=== PATIENT | male | born 1955 ===

== ENCOUNTER 2017-10-15 11:38 | Day surgery (SDC) | payer MEDICARE, MEDICAID ==
[2014-07-21 12:59] VITALS: BMI 25.8
[2017-10-15] MEDS ORDERED: Lidocaine 1% 20 MG/2 ML PF AMP ONE (12:20)
[2017-10-15] MEDS ORDERED: Sodium Chloride 0.9% 40 ML IV ONE (12:21)
[2017-10-15] MEDS ORDERED: Midazolam 2 MG/2 ML VIAL ONE (13:17)
[2017-10-15] MEDS ORDERED: Iohexol 240 (50 ml) ONE (13:20)
[2017-10-15] MEDS ORDERED: Lidocaine 1% Inj (20ml) INFIL ONE (13:38)
[2017-10-15] MEDS ORDERED: Sodium Chloride 0.9% 500 ML IV ONE (13:38)
[2017-10-15] MEDS ORDERED: Iohexol 300 100 ML IJ ONE (13:39)
[2017-10-15 14:48] VITALS: BP 150/84; PULSE 76; RESP 19; TEMP 97.9; O2SAT 100
--- NOTE | 2017-10-16 05:53 | OP ---
PROCEDURE DATE: 10/15/2017 PAIN PROCEDURE NOTE SURGEON: Ritika Simmons MD OPERATIVE PROCEDURE: Epidural steroid injection, interlaminar approach with fluoroscopic guidance. INJECTATE: A total of 5.0 cc consisting of 2.5 cc of Kenalog (40 mg/cc)/Celestone (6 mg/cc) with the remainder of saline. FINDINGS: Flow of contrast was excellent along and into the epidural space. PROCEDURE: The patient was prepped and draped in a sterile fashion in the prone position after informed consent was signed and all patient questions were answered including the risks, benefits, alternative treatment options, and prognosis. The risks include but are not limited to infection, allergic reaction, nerve damage, stroke, paralysis, epidural hematoma, syncope, headache, respiratory or cardiac arrest, spinal cord injury, and scar formation. Using a paramedian approach from the side mentioned above, the region overlying the inferior lamina was localized under fluoroscopic visualization and the soft tissues overlying this structure were infiltrated with 4 cc of 1% lidocaine without epinephrine. A #17 gauge Tuohy needle was inserted into the epidural space using a paramedian approach. The epidural space was localized using loss of resistance after negative aspirate for air, blood, and CSF. A 2 cc volume of Omnipaque-300 was injected into the epidural space and the flow of contrast was observed. Radiographs were obtained for documentation purposes. The injectate was administered into the level noted above. The patient tolerated the procedure well and was discharged after an appropriate period of observation. If there are any complications, the patient was instructed to call us. The patient is to follow up with the requesting physician in one to two weeks. Ariz MD [place]
== END 2017-10-15 14:50 | disposition home or self-care (01) ==
LOC: C.SDS 11:38
PROVIDERS: ATTEND Neuromusculoskeletal Medicine, Sports Medicine
DX: M54.12 Radiculopathy, cervical region (principal)
CPT/HCPCS: 62321; 82948; J1100; J2250; J3010; Q9967

== ENCOUNTER 2018-08-12 10:56 | Day surgery (SDC) | payer MEDICARE, MEDICAID ==
[~2018-08-12 10:56] MED LIST: Bupivacaine HCl 0.5% PF (10 ml) Inj ONE; Lidocaine Hydrochloride 20 ML INJ ONE; Sodium Chloride 0.9% 20 ML IV ONE
[2018-08-12 11:20] VITALS: BMI 24.7
[2018-08-12] MEDS ORDERED: Dexamethasone 4 mg/1 ml ONE (13:28)
[2018-08-12] MEDS ORDERED: Propofol 10 mg/ml Inj (20 ML) ONE (13:34)
--- NOTE | 2018-08-12 14:58 | RAD ---
Date of service: 08/12/2018 PROCEDURE: Intraoperative Fluoroscopy. HISTORY: LUMBAR DISC HERNIATION FINDINGS: Fluoroscopic assistance was provided for lumbar facet injections. Please refer to the operative report from BENEDICTO Stover, , MD DANAE.
[2018-08-12 15:36] VITALS: RESP 18; TEMP 97.8
[2018-08-12 15:54] VITALS: BP 129/79; PULSE 66; O2SAT 98
--- NOTE | 2018-08-14 06:26 | OP ---
PROCEDURE DATE: 08/12/2018 PAIN PROCEDURE NOTE SURGEON: Ritika Simmosn MD OPERATIVE PROCEDURE: Lumbosacral epidural steroid injection, transforaminal approach with fluoroscopic guidance. INJECTATE: A total of 5 mL, consisting of 2.5 mL of Kenalog (40 mg/mL), with the remainder of saline. APPROACH: Transforaminal approach. IMPROVEMENT AFTER TODAY'S PROCEDURE: . FINDINGS: Flow of contrast was excellent along the right L5 and S1 nerve roots and into the epidural space. PROCEDURE: The patient was prepped and draped in a sterile fashion in the prone position after informed consent was signed and all the patient's questions were answered including the risks, benefits, alternative treatment options, and prognosis. The risks include but are not limited to infection, allergic reaction, increased pain, lack of therapeutic benefit, steroid reaction, nerve damage, paralysis, stroke, epidural hematoma, syncope, headache, respiratory or cardiac arrest, and scar formation. The C-arm was positioned so that an oblique view of the foramen as noted above was visualized. The soft tissues overlying this structure were infiltrated with 2-3 mL of 1% lidocaine without epinephrine. A 22-gauge spinal needle was inserted toward the target using a "trajectory" view along the fluoroscope beam. Under AP and lateral visualization, the needle was advanced so it did not puncture dura. Biplanar projections were used to confirm position. Aspiration was confirmed to be negative for CSF and/or blood. A 1 to 2 mL volume of Omnipaque-300 was injected and flow of contrast was noted at each level. Radiographs were obtained for documentation purposes. After attaining flow of contrast documented above, a 1 mL test dose of 1% lidocaine was injected into each respective transforaminal space. The patient was observed for 90 seconds post injection. After no sensory deficits were reported, and normal lower extremity motor function was noted, the above injectate was administered so that equal amounts of the injectate were placed at each foramen into the transforaminal epidural space. The patient tolerated the procedure well and was discharged after an appropriate period of observation. If there are any complications, the patient was instructed to call us. The patient is to follow up with the requesting physician within one to two weeks. Ariz MD [place] [facility] # [id number]
== END 2018-08-12 16:40 | disposition home or self-care (01) ==
LOC: C.SDS 10:56
PROVIDERS: ATTEND Neuromusculoskeletal Medicine, Sports Medicine
DX: M51.26 Other intervertebral disc displacement, lumbar region (principal); E11.9 Type 2 diabetes mellitus without complications; I25.10 Atherosclerotic heart disease of native coronary artery without angina pectoris; I10 Essential (primary) hypertension; Z95.1 Presence of aortocoronary bypass graft; Z79.899 Other long term (current) drug therapy; Z79.02 Long term (current) use of antithrombotics/antiplatelets; F17.210 Nicotine dependence, cigarettes, uncomplicated; F41.9 Anxiety disorder, unspecified; Z90.49 Acquired absence of other specified parts of digestive tract
CPT/HCPCS: 64483; 82948; J1100; J2704